=== PATIENT | male | born 1960 | race Caucasian/White ===

== ENCOUNTER 2016-09-17 20:11 | Inpatient (IN) | payer BC, OTHER ==
--- NOTE | 2016-09-17 20:23 | C.PDOC ---
History Of Present Illness Patient presents with complaints of worsening pain to right inguinal area for a couple of days. Patient reports he has had similar symptoms in the past but is worse now rating pain a 5/10. Patient denies testicular pain, fever, chills, n/v /d or any other complaints at this time. Time Seen by Provider: 09/17/16 20:23 Chief Complaint (Nursing): Abdominal Pain History Per: Patient History/Exam Limitations: no limitations Onset/Duration Of Symptoms: Days Current Symptoms Are (Timing): Still Present Severity: Mild Pain Scale Rating Of: 2 Location Of Pain/Discomfort: Suprapubic Radiation Of Pain To:: None Quality Of Discomfort: "Pain" Associated Symptoms: denies: Fever, Chills Past Medical History Reviewed: Historical Data, Nursing Documentation, Vital Signs Vital Signs: Last Vital Signs Temp 97.7 F 09/17/16 21:24 Pulse 69 09/17/16 21:24 Resp 20 09/17/16 21:24 BP 111/75 09/17/16 21:24 Pulse Ox 96 09/17/16 21:24 - Medical History PMH: Diabetes - [facility] CENTRAL VENOUS CATHETER PLACEMENT WITH GUIDANCE (09/02/12) Family History: States: No Known Family Hx - Social History Hx Tobacco Use: No Hx Alcohol Use: No Hx Substance Use: No - Immunization History Hx Tetanus Toxoid Vaccination: No Hx Influenza Vaccination: No Hx Pneumococcal Vaccination: No Review Of Systems Constitutional: Negative for: Fever, Chills Gastrointestinal: Negative for: Nausea, Vomiting, Diarrhea Genitourinary: Negative for: Scrotal Pain Skin: Negative for: Rash Physical Exam - Physical Exam Appears: Non-toxic, No Acute Distress Skin: Warm, Dry, No Rash Head: Normacephalic Eye(s): bilateral: Normal Inspection Oral Mucosa: Moist Neck: Supple Chest: Symmetrical Cardiovascular: Rhythm Regular Respiratory: No Rales, No Rhonchi, No Wheezing Gastrointestinal/Abdominal: Bowel Sounds (Active), Soft, No Tenderness, No Guarding, No Rebound Male Genital: No Testicular Tenderness, Inguinal Tenderness, No Scrotal Swelling , Other (Right sided inguinal hernia, somewhat reduceable) Extremity: No Tenderness Extremity: Bilateral: Atraumatic, Normal Color And Temperature Neurological/Psych: Oriented x3, Normal Speech, Normal Cognition, Other (No focal deficits) ED Course And Treatment - Laboratory Results Result Diagrams: 09/17/16 21:01 09/17/16 21:01 O2 Sat by Pulse Oximetry: 100 (RA) Pulse Ox Interpretation: Normal Disposition Discussed With Dr.: Neri De Leon Comment: accepted the pt on his service and took over the care at 9:30 PM Doctor Will See Patient In The: Hospital Counseled Patient/Family Regarding: Studies Performed, Diagnosis - Disposition Disposition: HOSPITALIZED Disposition Time: 20:23 Condition: FAIR Forms: [facility] (Vietnamese) - Clinical Impression Clinical Impression: Abdominal pain, Inguinal hernia of right side with obstruction - Scribe Statement The provider has reviewed the documentation as recorded by the Scribe Elizabeth Pike All medical record entries made by the Scribe were at my direction and personally dictated by me. I have reviewed the chart and agree that the record accurately reflects my personal performance of the history, physical exam, medical decision making, and the department course for this patient. I have also personally directed, reviewed, and agree with the discharge instructions and disposition. Decision To Admit - Pt Status Changed To: Hospital Disposition Of: Inpatient - Admit Certification Admit to Inpatient:: After my assessment, the patient will require hospitalization for at least two midnights. This is because of the severity of symptoms shown, intensity of services needed, and/or the medical risk in this patient being treated as an outpatient. - InPatient: Physician Admission Certification:: After my assessment, the patient will require hospitalization for at least two midnights. This is because of the severity of symptoms shown, intensity of services needed, and/or the medical risk in this patient being treated as an outpatient. - . Bed Request Type: Regular Admitting Physician: Neri De Leon Patient Diagnosis: Abdominal pain, Inguinal hernia of right side with obstruction
[2016-09-17 20:24] VITALS: BMI 35.9
[2016-09-17] MEDS ORDERED: Sodium Chloride 0.9% 1,000 ML IV ONE (20:24)
[2016-09-17 21:04] LABS: BASO % 0.4 % (0.0-2.0); EOS # 0.3 K/uL (0.0-0.7); EOS % 3.3 % (0.0-4.0); HEMATOCRIT 46.5 % (35.0-51.0); LYMPH # 2.7 K/uL (1.0-4.3); LYMPH % 33.3 % (20.0-40.0); MEAN CELL VOLUME 88.9 fL (80.0-94.0); MEAN CORPUSCULAR HEMOGLOBIN 31.5 pg (27.0-31.0); MEAN CORPUSCULAR HGB CONC 35.4 g/dL (33.0-37.0); MONO # 0.9 K/uL (0.0-0.8); RED CELL DISTRIBUTION WIDTH 13.1 % (11.5-14.5); WHITE BLOOD COUNT 8.2 K/uL (4.8-10.8)
[2016-09-17] MEDS ORDERED: Sodium Chloride 0.9% 1,000 ML ONE ×2 (21:08→23:11)
[2016-09-17 21:09] LABS: RBC URINE 3 /hpf (0-3); URINE BACTERIA RARE (<OCC); URINE BILIRUBIN NEGATIVE (NEGATIVE); URINE BLOOD NEGATIVE (NEGATIVE); URINE COLOR Yellow (YELLOW); URINE GLUCOSE (UA) 3+ mg/dL (Normal); URINE KETONE NEGATIVE (NEGATIVE); URINE LEUKOCYTE ESTERASE NEG Leu/uL (Negative); URINE PROTEIN NEGATIVE (NEGATIVE); URINE UROBILINOGEN NORMAL mg/dL (0.2-1.0); WBC URINE 3 /hpf (0-5)
[2016-09-17 21:16] LABS: ALB/GLOB RATIO 1.6 (1.0-2.1); ALKALINE PHOSPHATASE 41 U/L (38-126); ALT/SGPT 42 U/L (21-72); AST/SGOT 23 U/L (17-59); BILIRUBIN,TOTAL 0.6 mg/dL (0.2-1.3); BLOOD UREA NITROGEN 14 mg/dL (9-20); CARBON DIOXIDE 25 mmol/L (22-30); CHLORIDE 97 mmol/L (98-107); GFR AFRICAN-AMERICAN > 60; GLUCOSE,RANDOM 260 mg/dL (75-110); POTASSIUM 3.8 mmol/L (3.6-5.2); SODIUM 137 mmol/L (132-148); TOTAL PROTEIN 6.4 g/dL (6.3-8.3)
--- NOTE | 2016-09-17 21:16 | CP.PCM.HP ---
History of Present Illness - History of Present Illness History of Present Illness: 56 year old with hx of DM, hx of obstructive uropathy complicated with sepsis. recently with inguinal hernia lately on and off pain, now with constant pain with nausea, admitted with incarceration and possible subacute obstruction, no fever, cp or sob, no prior [place], CHF or CVA. prior echo with normal LV, no . to be seen by surgery, acceptable risk for cardiac complication from a possible surgery. Present on Admission - Present on Admission Any Indicators Present on Admission: No Review of Systems - Constitutional Constitutional: Anorexia, Weakness - EENT Eyes: absent: Discharge Ears: absent: Ear Discharge, Dizziness Nose/Mouth/Throat: absent: Epistaxis - Cardiovascular Cardiovascular: absent: Acrocyanosis, Chest Pain, Diaphoresis, Palpitations, Syncope - Respiratory Respiratory: absent: Cough, Dyspnea, Hemoptysis - Gastrointestinal Gastrointestinal: Abdominal Pain, Constipation, Nausea. absent: Diarrhea - Genitourinary Genitourinary: absent: Change in Urinary Stream Past Patient History - Past Social History Smoking Status: Never Smoked - CARDIAC Hx Cardiac Disorders: No - RENAL Hx Kidney Stones: Yes - ENDOCRINE/METABOLIC Hx Diabetes Mellitus Type 2: Yes - PSYCHIATRIC Hx Substance Use: No - SURGICAL HISTORY Hx Surgeries: Yes - ANESTHESIA Hx Anesthesia: Yes Hx Anesthesia Reactions: No Meds Allergies/Adverse Reactions: Allergies Allergy/AdvReac Type Severity Reaction Status Date / Time No Known Allergies Allergy Unverified 09/02/12 13:32 Physical Exam - Constitutional Appears: Non-toxic - Head Exam Head Exam: ATRAUMATIC - Eye Exam Eye Exam: EOMI - ENT Exam ENT Exam: Mucous Membranes Moist - Neck Exam Neck exam: Negative for: Lymphadenopathy, Thyromegaly - Respiratory Exam Respiratory Exam: Clear to Auscultation Bilateral. absent: Rales - Cardiovascular Exam Cardiovascular Exam: REGULAR RHYTHM. absent: Systolic Murmur - GI/Abdominal Exam GI & Abdominal Exam: Normal Bowel Sounds, Tenderness. absent: Organomegaly - Rectal Exam Rectal Exam: Deferred - Extremities Exam Extremities exam: Positive for: normal capillary refill. Negative for: calf tenderness - Neurological Exam Neurological exam: Alert, Oriented x3 - Psychiatric Exam Psychiatric exam: Anxious - Skin Skin Exam: Dry Results - Vital Signs Recent Vital Signs: Last Vital Signs Temp 97.8 F 09/17/16 20:23 Pulse 69 09/17/16 20:23 Resp 16 09/17/16 20:23 BP 115/82 09/17/16 20:23 Pulse Ox 100 09/17/16 20:42 - Labs Result Diagrams: 09/17/16 21:01 09/17/16 21:01 Labs: Laboratory Results - last 24 hr 09/17/16 09/17/16 21:01 21:01 WBC 8.2 RBC 5.23 Hgb 16.5 Hct 46.5 MCV 88.9 MCH 31.5 H MCHC 35.4 RDW 13.1 Plt Count 126 L D MPV 10.0 Neut % (Auto) 52.0 Lymph % (Auto) 33.3 [place] % (Auto) 11.0 H Eos % (Auto) 3.3 Baso % (Auto) 0.4 Neut # 4.3 Lymph # 2.7 [place] # 0.9 H Eos # 0.3 Baso # 0.0 Urine Color Yellow Urine Clarity Clear Urine pH 6.0 Ur Specific [place] 1.020 Urine Protein Negative Urine Glucose (UA) 3+ H Urine Ketones Negative Urine Blood Negative Urine Nitrate Negative Urine Bilirubin Negative Urine Urobilinogen Normal Ur Leukocyte Esterase Neg Urine WBC (Auto) 3 Urine RBC (Auto) 3 Ur Squamous Epith Cells < 1 Urine Bacteria Rare Assessment & Plan (1) Inguinal hernia of right side with obstruction Status: Acute Comment: symptomatic, f/u with surgery, acceptable risk for cardiac complication from possible surgery. (2) Diabetes 1.5, managed as type 2 Status: Chronic Comment: stable (3) Urolithiasis Status: Chronic Decision To Admit - Pt Status Changed To: Hospital Disposition Of: Inpatient - Admit Certification Admit to Inpatient:: After my assessment, the patient will require hospitalization for at least two midnights. This is because of the severity of symptoms shown, intensity of services needed, and/or the medical risk in this patient being treated as an outpatient. - InPatient: Physician Admission Certification:: yes - . Bed Request Type: Regular
[2016-09-17] MEDS ORDERED: Oxycodone/Acetaminophen 5/325 mg Tab PO PRN (21:30)
[2016-09-17] MEDS ORDERED: HYDROmorphone 1 mg/ml ISec IVP PRN (21:30)
[2016-09-17] MEDS: Sodium Chloride 0.9% 1,000 ML IV SCH (23:15)
[2016-09-17] MEDS: (Novolin R) Insulin Human Regular 100 units/ml vial SC SCH (23:23)
[2016-09-17] MEDS ORDERED: (Novolin R) Insulin Human Regular 100 units/ml vial ONE (23:23)
--- NOTE | 2016-09-18 00:59 | CP.PCM.CON ---
History of Present Illness - History of Present Illness History of Present Illness: [facility] Surgery Consult Re: R inguinal hernia HPI: 56M with recurrent R inguinal hernia having occasional pain for the last 1- 2 months. Now constant pain with nausea, no emesis, admitted with incarceration and possible subacute obstruction. No F/C, sob, chest pain, change in bowel or bladder habits. Prior echo with normal LV, no . Cleared for surgery per primary. PMH: DM, urolithiasis, PSH: R inguinal hernia, R knee surgeries SH: Denies tobacco, EtOH, and drug use. All: NKDA Meds: Metformin Review of Systems - Review of Systems All systems: reviewed and no additional remarkable complaints except (as per HPI ) Past Patient History - Past Social History Smoking Status: Never Smoked - CARDIAC Hx Cardiac Disorders: No - RENAL Hx Kidney Stones: Yes - ENDOCRINE/METABOLIC Hx Diabetes Mellitus Type 2: Yes - PSYCHIATRIC Hx Substance Use: No - SURGICAL HISTORY Hx Surgeries: Yes - ANESTHESIA Hx Anesthesia: Yes Hx Anesthesia Reactions: No Meds Allergies/Adverse Reactions: Allergies Allergy/AdvReac Type Severity Reaction Status Date / Time No Known Allergies Allergy Unverified 09/02/12 13:32 - Medications Medications: Current Medications Acetaminophen (Tylenol 325mg Tab) 650 mg PO Q6 PRN PRN Reason: Fever >100.4 F Docusate Sodium (Colace) 100 mg PO BID [facility] Hydromorphone HCl (Dilaudid) 1 mg IVP Q6H PRN PRN Reason: Pain, severe (8-10) Sodium Chloride (Sodium Chloride 0.9%) 1,000 mls @ 100 mls/hr IV .Q10H ONE Stop: 09/18/16 06:23 Last Admin: 09/17/16 21:04 Dose: 100 mls/hr Sodium Chloride (Sodium Chloride 0.9%) 1,000 mls @ 60 mls/hr IV .[id number] [facility] Last Admin: 09/17/16 23:15 Dose: 60 mls/hr Insulin Human Regular (Novolin R) 0 unit SC ACHS [facility] PRN Reason: Protocol Last Admin: 09/17/16 23:23 Dose: 2 unit Metformin HCl (Glucophage) 500 mg PO DAILY [facility] Ondansetron HCl (Zofran Inj) 4 mg IVP Q6 PRN PRN Reason: Nausea/Vomiting Oxycodone/Acetaminophen (Percocet 5/325 Mg Tab) 1 tab PO Q4 PRN PRN Reason: Pain, moderate (4-7) Stop: 09/20/16 21:31 Sucralfate (Carafate Tab) 1 gm PO BID [facility] Physical Exam - Constitutional Appears: Non-toxic, No Acute Distress - Head Exam Head Exam: ATRAUMATIC, NORMOCEPHALIC - Eye Exam Eye Exam: EOMI. absent: Scleral icterus - Respiratory Exam Respiratory Exam: NORMAL BREATHING PATTERN. absent: Respiratory Distress - Cardiovascular Exam Cardiovascular Exam: RRR, +S1, +S2 - GI/Abdominal Exam GI & Abdominal Exam: Soft. absent: Distended, Tenderness - Rectal Exam Rectal Exam: Deferred - Exam Additional comments: R inguinal hernia,TTP, reducible - Extremities Exam Extremities exam: Negative for: calf tenderness, pedal edema - Back Exam Back exam: absent: CVA tenderness (L), CVA tenderness (R) - Neurological Exam Neurological exam: Alert, Oriented x3 - Psychiatric Exam Psychiatric exam: Normal Affect, Normal Mood - Skin Skin Exam: Dry, Warm Results - Vital Signs Recent Vital Signs: Last Vital Signs Temp 98 F 09/18/16 00:55 Pulse 75 09/18/16 00:55 Resp 20 09/18/16 00:55 BP 119/77 09/18/16 00:55 Pulse Ox 96 09/18/16 00:55 - Labs Result Diagrams: 09/17/16 21:01 09/17/16 21:01 Labs: Laboratory Results - last 24 hr 09/17/16 23:14 POC Glucose (mg/dL) 197 H Assessment & Plan - Assessment and Plan (Free Text) Assessment: 56M with recurrent R inguinal hernia Plan: NPO p MN Possible OR tomorrow. IVF Pain control Cleared for surgery from a cardiac standpoint D/W Dr. Patsy Burns PGY4
[2016-09-18] MEDS: (Novolin R) Insulin Human Regular 100 units/ml vial SC SCH ×4 (08:03→21:33)
--- NOTE | 2016-09-18 08:10 | RAD ---
PROCEDURE: CHEST RADIOGRAPH, 1 VIEW HISTORY: Abdominal pain COMPARISON: 09/07/2012 FINDINGS: LUNGS: Diffuse increased interstitial lung markings suggestive for underlying edema and or infiltrate. Right hilar prominence. Patchy increased consolidative changes at the left lung base. PLEURA: As above. CARDIOVASCULAR: Normal. OSSEOUS STRUCTURES: No significant abnormalities. Productive change at the end of the 1st left rib. VISUALIZED UPPER ABDOMEN: Normal. OTHER FINDINGS: None. IMPRESSION: Diffuse increased interstitial lung markings suggestive for underlying edema and or infiltrate. Right hilar prominence. Patchy increased consolidative changes at the left lung base.
[2016-09-18 09:01] LABS: CHOLESTEROL 159 mg/dL (0-199)
--- NOTE | 2016-09-18 12:19 | CP.PCM.PN ---
Subjective - Date & Time of Evaluation Date of Evaluation: 09/18/16 Time of Evaluation: 12:00 - Subjective Subjective: With pain, plan for surgery. Stable hemodynamically, acceptable risk for cardiac complication from the proposed surgery. Objective - Vital Signs/Intake and Output Vital Signs (last 24 hours): Temp Pulse Resp BP Pulse Ox 97.7 F 66 20 111/75 98 09/18/16 07:05 09/18/16 07:05 09/18/16 07:05 09/18/16 07:05 09/18/16 07:05 Intake and Output: 09/18/16 09/18/16 06:59 18:59 Intake Total 360 Balance 360 - Medications Medications: Current Medications Acetaminophen (Tylenol 325mg Tab) 650 mg PO Q6 PRN PRN Reason: Fever >100.4 F Docusate Sodium (Colace) 100 mg PO BID [facility] Last Admin: 09/18/16 09:26 Dose: Not Given Hydromorphone HCl (Dilaudid) 1 mg IVP Q6H PRN PRN Reason: Pain, severe (8-10) Sodium Chloride (Sodium Chloride 0.9%) 1,000 mls @ 60 mls/hr IV .[id number] [facility] Last Admin: 09/17/16 23:15 Dose: 60 mls/hr Insulin Human Regular (Novolin R) 0 unit SC ACHS [facility] PRN Reason: Protocol Last Admin: 09/18/16 11:39 Dose: Not Given Metformin HCl (Glucophage) 500 mg PO DAILY [facility] Last Admin: 09/18/16 09:26 Dose: Not Given Ondansetron HCl (Zofran Inj) 4 mg IVP Q6 PRN PRN Reason: Nausea/Vomiting Oxycodone/Acetaminophen (Percocet 5/325 Mg Tab) 1 tab PO Q4 PRN PRN Reason: Pain, moderate (4-7) Stop: 09/20/16 21:31 Pneumococcal Polyvalent Vaccine (Pneumovax 23 Vaccine) 0.5 ml IM .ONCE ONE Stop: 09/20/16 10:01 Sucralfate (Carafate Tab) 1 gm PO BID [facility] Last Admin: 09/18/16 09:26 Dose: Not Given - Labs Labs: PT 11.7 SECONDS (9.7-12.2) 09/17/16 21:01 INR 1.0 09/17/16 21:01 APTT 31 SECONDS (21-34) 09/17/16 21:01 - Constitutional Appears: Non-toxic - Head Exam Head Exam: ATRAUMATIC - Eye Exam Eye Exam: EOMI - ENT Exam ENT Exam: Mucous Membranes Moist - Neck Exam Neck Exam: absent: Lymphadenopathy, Thyromegaly - Respiratory Exam Respiratory Exam: Clear to Ausculation Bilateral. absent: Rales - Cardiovascular Exam Cardiovascular Exam: REGULAR RHYTHM. absent: Murmur - GI/Abdominal Exam GI & Abdominal Exam: Normal Bowel Sounds. absent: Organomegaly - Rectal Exam Rectal Exam: Deferred - Extremities Exam Extremities Exam: Normal Capillary Refill. absent: Calf Tenderness - Neurological Exam Neurological Exam: Alert, Oriented x3 - Psychiatric Exam Psychiatric exam: Anxious - Skin Skin Exam: Dry Assessment and Plan (1) Inguinal hernia of right side with obstruction Status: Acute (2) Diabetes 1.5, managed as type 2 Status: Chronic (3) Urolithiasis Status: Chronic
[2016-09-18] MEDS ORDERED: Lactated Ringer's 1,000 ML IV ONE (16:30)
[2016-09-18] MEDS ORDERED: Midazolam 2 MG/2 ML VIAL ONE (16:31)
[2016-09-18] MEDS ORDERED: Propofol 10 mg/ml Inj (20 ML) ONE (16:31)
[2016-09-18] MEDS ORDERED: ceFAZolin IV 1 gm in Dextrose 0 GM/0 ML BAG IVPB ONE (16:36)
[2016-09-18] MEDS ORDERED: ceFAZolin IV 2 gm in Dextrose 1 GM/50 ML BAG IVPB ONE (16:45)
[2016-09-18] MEDS ORDERED: Bupivacaine HCl 0.25% PF (10 ml) Inj ONE (16:46)
[2016-09-18] MEDS ORDERED: Rocuronium 10 mg/ml (5 ml) ONE (16:47)
[2016-09-18] MEDS: HYDROmorphone 0.5 mg/0.5 ml ISec IVP PRN ×3 (18:04→18:46)
--- NOTE | 2016-09-18 18:04 | PCM.SURG1 ---
Surgeon's Initial Post Op Note - Surgeon's Notes Surgeon: Dr. Garner Chlorine Cell Tender: Dr. Swan PGY2, PGY1 Pre-Operative Diagnosis: Recurrent Inguinal Hernia Operative Findings: see op note Post-Operative Diagnosis: same Operation Performed: Open Right Inguinal Hernia repair w/ mesh placement Specimen/Specimens Removed: none Estimated Blood Loss: EBL {In ML}: 10 Post-Op Condition: Good Date of Surgery/Procedure: 09/18/16 Time of Surgery/Procedure: 16:50
[2016-09-18] MEDS: Sodium Chloride 0.9% 1,000 ML IV SCH (19:00)
--- NOTE | 2016-09-18 19:16 | CARD ---
APPROVED REPORT EKG Measurement Heart [id number] <Conclusion> Normal sinus rhythm Normal ECG
[2016-09-18 20:13] VITALS: RESP 20
[2016-09-18] MEDS: Oxycodone/Acetaminophen 5/325 mg Tab PO PRN (20:16)
[2016-09-19] MEDS: Oxycodone/Acetaminophen 5/325 mg Tab PO PRN ×2 (01:42→05:46)
--- NOTE | 2016-09-19 04:29 | CON ---
DATE: HISTORY OF PRESENT ILLNESS: The patient is a 56-year-old white male who I know before because of his renal stone, he has some pain and he has inguinal hernia, which is becoming symptomatic and the patient not having pain, came to the ER and admitted. The patient has also CT scan done before which revealed renal stone. PHYSICAL EXAMINATION: Revealed abdomen soft, inguinal hernia present, no suprapubic fullness, no flank tenderness. The KUB revealed 5 mm stone in the right kidney. IMPRESSION: Inguinal hernia. PLAN: Repair by Dr. Garner and renal stone needs followup for future fragmentation. Shady Lu MD
[2016-09-19] MEDS: Sodium Chloride 0.9% 1,000 ML IV SCH (05:51)
[2016-09-19] MEDS: (Novolin R) Insulin Human Regular 100 units/ml vial SC SCH ×2 (07:30→11:30)
--- NOTE | 2016-09-19 09:31 | OP ---
PROCEDURE DATE: 09/18/2016 PREOPERATIVE DIAGNOSIS: Incarcerated right inguinal hernia. POSTOPERATIVE DIAGNOSIS: Recurrent inguinal hernia. PROCEDURE: Repair of recurrent recently incarcerated right inguinal hernia. SURGEON: Dr. Patsy Germain. MILIEU COUNSELOR: Dr. Sanchez and Dr. Swan, residents. ANESTHESIA ADMINISTERED BY: Dr. Dong. INDICATIONS: A 56-year-old man with remote history of hernia repair in the past who presents with severe groin pain. Examination was benign. The hernia was reduced, but he had such severe pain that he was admitted to the hospital. OPERATIVE FINDINGS: There was a quarter sized defect at the internal ring. This was repaired with the use of a PHS Prolene hernia system during the dissection of the cord and its content. The part of the cord particularly the vas was adherent to the underlying fascia, so we did not sweep this up with rest of the cord and left it there. After completion of the dissection, we then placed a PHS Prolene hernia system into the preperitoneal space unrolled it appropriately and then sutured and stapled the mesh into position. The result was quite good. We then closed the external oblique, closed the skin. The skin was closed with subcuticular closure and injected Marcaine. Blood loss during the procedure was less than 20 mL. Operation carried out was repair of recurrent recently incarcerated right inguinal hernia. Samson Garner Jr., MD cc: Neri Cuenca.
--- NOTE | 2016-09-19 14:41 | CP.PCM.PN ---
Subjective - Date & Time of Evaluation Date of Evaluation: 09/19/16 Time of Evaluation: 10:30 - Subjective Subjective: Patient seen and examined this morning. No acute events over night. Patient is voiding. Reports pain along surgical incision. Denies n/v. Objective - Vital Signs/Intake and Output Vital Signs (last 24 hours): Temp Pulse Resp BP Pulse Ox 98.2 F 75 20 119/63 94 L 09/19/16 08:39 09/19/16 08:39 09/19/16 08:39 09/19/16 08:39 09/19/16 08:39 Intake and Output: 09/19/16 09/19/16 06:59 18:59 Intake Total 1680 Output Total 2250 Balance -570 - Medications Medications: Current Medications Acetaminophen (Tylenol 325mg Tab) 975 mg PO Q8 [facility] Last Admin: 09/19/16 06:00 Dose: Not Given Docusate Sodium (Colace) 100 mg PO BID [facility] Last Admin: 09/19/16 10:11 Dose: 100 mg Sodium Chloride (Sodium Chloride 0.9%) 1,000 mls @ 60 mls/hr IV .[id number] [facility] Last Admin: 09/19/16 05:51 Dose: 60 mls/hr Insulin Human Regular (Novolin R) 0 unit SC ACHS [facility] PRN Reason: Protocol Last Admin: 09/19/16 11:30 Dose: 4 unit Ketorolac Tromethamine (Toradol) 10 mg PO Q6 PRN PRN Reason: Pain, moderate (4-7) Metformin HCl (Glucophage) 500 mg PO DAILY [facility] Last Admin: 09/19/16 10:10 Dose: 500 mg Ondansetron HCl (Zofran Inj) 4 mg IVP Q6 PRN PRN Reason: Nausea/Vomiting Oxycodone/Acetaminophen (Percocet 5/325 Mg Tab) 2 tab PO Q4 PRN PRN Reason: Pain, severe (8-10) Stop: 09/20/16 21:31 Last Admin: 09/19/16 05:46 Dose: 2 tab Pneumococcal Polyvalent Vaccine (Pneumovax 23 Vaccine) 0.5 ml IM .ONCE ONE Stop: 09/20/16 10:01 Sucralfate (Carafate Tab) 1 gm PO BID [facility] Last Admin: 09/19/16 10:11 Dose: 1 gm - Labs Labs: PT 11.7 SECONDS (9.7-12.2) 09/17/16 21:01 INR 1.0 09/17/16 21:01 APTT 31 SECONDS (21-34) 09/17/16 21:01 - Constitutional Appears: No Acute Distress - Head Exam Head Exam: NORMOCEPHALIC - Eye Exam Eye Exam: Normal appearance - ENT Exam ENT Exam: Mucous Membranes Moist - Respiratory Exam Respiratory Exam: NORMAL BREATHING PATTERN - Cardiovascular Exam Cardiovascular Exam: +S1, +S2 - GI/Abdominal Exam GI & Abdominal Exam: Soft, Tenderness - Extremities Exam Extremities Exam: absent: Calf Tenderness - Neurological Exam Neurological Exam: Alert, Awake, Oriented x3 - Psychiatric Exam Psychiatric exam: Normal Mood - Skin Skin Exam: Dry, Intact, Warm Assessment and Plan - Assessment and Plan (Free Text) Assessment: 56M s/p right (recurrent) inguinal hernia repair w/ mesh placement POD1 -Regular diet -Clear for discharge from surgical standpoint -Follow w/ Dr. Garner in 7-10 days -Okay to remove band aids tomorrow -Steri strips will fall off on their own -Further recs per Dr. Patsy Swan PGY-2
--- NOTE | 2016-09-19 15:11 | CP.PCM.PN ---
Subjective - Date & Time of Evaluation Date of Evaluation: 09/19/16 Time of Evaluation: 15:10 - Subjective Subjective: PT SEEN AND EXAMINED, DENIES ANY PAIN, RESP EASY AND UNLABORED. NAD Objective - Vital Signs/Intake and Output Vital Signs (last 24 hours): Temp Pulse Resp BP Pulse Ox 98.2 F 75 20 119/63 94 L 09/19/16 08:39 09/19/16 08:39 09/19/16 08:39 09/19/16 08:39 09/19/16 08:39 Intake and Output: 09/19/16 09/19/16 06:59 18:59 Intake Total 1680 Output Total 2250 Balance -570 - Medications Medications: Current Medications Acetaminophen (Tylenol 325mg Tab) 975 mg PO Q8 [facility] Last Admin: 09/19/16 06:00 Dose: Not Given Docusate Sodium (Colace) 100 mg PO BID [facility] Last Admin: 09/19/16 10:11 Dose: 100 mg Sodium Chloride (Sodium Chloride 0.9%) 1,000 mls @ 60 mls/hr IV .[id number] [facility] Last Admin: 09/19/16 05:51 Dose: 60 mls/hr Insulin Human Regular (Novolin R) 0 unit SC ACHS [facility] PRN Reason: Protocol Last Admin: 09/19/16 11:30 Dose: 4 unit Ketorolac Tromethamine (Toradol) 10 mg PO Q6 PRN PRN Reason: Pain, moderate (4-7) Metformin HCl (Glucophage) 500 mg PO DAILY [facility] Last Admin: 09/19/16 10:10 Dose: 500 mg Ondansetron HCl (Zofran Inj) 4 mg IVP Q6 PRN PRN Reason: Nausea/Vomiting Oxycodone/Acetaminophen (Percocet 5/325 Mg Tab) 2 tab PO Q4 PRN PRN Reason: Pain, severe (8-10) Stop: 09/20/16 21:31 Last Admin: 09/19/16 05:46 Dose: 2 tab Pneumococcal Polyvalent Vaccine (Pneumovax 23 Vaccine) 0.5 ml IM .ONCE ONE Stop: 09/20/16 10:01 Sucralfate (Carafate Tab) 1 gm PO BID [facility] Last Admin: 09/19/16 10:11 Dose: 1 gm - Labs Labs: PT 11.7 SECONDS (9.7-12.2) 09/17/16 21:01 INR 1.0 09/17/16 21:01 APTT 31 SECONDS (21-34) 09/17/16 21:01 Assessment and Plan - Assessment and Plan (Free Text) Plan: 56M s/p right (recurrent) inguinal hernia repair w/ mesh placement POD1 -Regular diet -Clear for discharge from surgical standpoint and Dr. De Leon -Follow w/ Dr. Garner in 7-10 days -Okay to remove band aids tomorrow -Steri strips will fall off on their own - Rx for percocet as per Dr. De Leon #15 pills Pt and family agree w/poc and verbalize understanding.
[2016-09-19 16:04] VITALS: BP 123/73; PULSE 88; TEMP 98.4; O2SAT 95
--- NOTE | 2016-09-19 16:35 | CP.PCM.DIS ---
Provider - Provider Date of Admission: 09/17/16 21:30 Attending physician: Neri Johnston MD Time Spent in preparation of Discharge (in minutes): 20 Diagnosis - Discharge Diagnosis (1) Inguinal hernia of right side with obstruction Status: Acute (2) Diabetes 1.5, managed as type 2 Status: Chronic (3) Urolithiasis Status: Chronic Hospital Course - Lab Results Lab Results: Most Recent Lab Values WBC 8.2 K/uL (4.8-10.8) 09/17/16 21:01 RBC 5.23 Mil/uL (4.40-5.90) 09/17/16 21:01 Hgb 16.5 g/dL (12.0-18.0) 09/17/16 21:01 Hct 46.5 % (35.0-51.0) 09/17/16 21:01 MCV 88.9 fL (80.0-94.0) 09/17/16 21:01 MCH 31.5 pg (27.0-31.0) H 09/17/16 21:01 MCHC 35.4 g/dL (33.0-37.0) 09/17/16 21:01 RDW 13.1 % (11.5-14.5) 09/17/16 21:01 Plt Count 126 K/uL (130-400) L D 09/17/16 21:01 MPV 10.0 fL (7.2-11.7) 09/17/16 21:01 Neut % (Auto) 52.0 % (50.0-75.0) 09/17/16 21:01 Lymph % (Auto) 33.3 % (20.0-40.0) 09/17/16 21:01 [place] % (Auto) 11.0 % (0.0-10.0) H 09/17/16 21:01 Eos % (Auto) 3.3 % (0.0-4.0) 09/17/16 21:01 Baso % (Auto) 0.4 % (0.0-2.0) 09/17/16 21:01 Neut # 4.3 K/uL (1.8-7.0) 09/17/16 21:01 Lymph # 2.7 K/uL (1.0-4.3) 09/17/16 21:01 [place] # 0.9 K/uL (0.0-0.8) H 09/17/16 21:01 Eos # 0.3 K/uL (0.0-0.7) 09/17/16 21:01 Baso # 0.0 K/uL (0.0-0.2) 09/17/16 21:01 Differential Comment 09/17/16 21:01 PT 11.7 SECONDS (9.7-12.2) 09/17/16 21:01 INR 1.0 09/17/16 21:01 APTT 31 SECONDS (21-34) 09/17/16 21:01 Sodium 137 mmol/L (132-148) 09/17/16 21:01 Potassium 3.8 mmol/L (3.6-5.2) 09/17/16 21:01 Chloride 97 mmol/L (98-107) L 09/17/16 21:01 Carbon Dioxide 25 mmol/L (22-30) 09/17/16 21:01 Anion Gap 19 (10-20) 09/17/16 21:01 BUN 14 mg/dL (9-20) 09/17/16 21:01 Creatinine 0.6 MG/DL (0.8-1.5) L 09/17/16 21:01 Est GFR ( Amer) > 60 09/17/16 21:01 Est GFR (Non-Af Amer) > 60 09/17/16 21:01 POC Glucose (mg/dL) 267 mg/dL (65-110) H 09/19/16 11:44 Random Glucose 260 mg/dL (75-110) H 09/17/16 21:01 Hemoglobin A1c 8.2 % (4.2-6.5) H D 09/18/16 08:29 Calcium 9.0 mg/dl (8.6-10.4) 09/17/16 21:01 Total Bilirubin 0.6 mg/dL (0.2-1.3) 09/17/16 21:01 AST 23 U/L (17-59) 09/17/16 21:01 ALT 42 U/L (21-72) 09/17/16 21:01 Alkaline Phosphatase 41 U/L (38-126) 09/17/16 21:01 Total Protein 6.4 g/dL (6.3-8.3) 09/17/16 21:01 Albumin 4.0 g/dL (3.5-5.0) 09/17/16 21:01 Globulin 2.5 gm/dL (2.2-3.9) 09/17/16 21:01 Albumin/Globulin Ratio 1.6 (1.0-2.1) 09/17/16 21:01 Triglycerides 154 mg/dL (0-149) H D 09/18/16 08:29 Cholesterol 159 mg/dL (0-199) 09/18/16 08:29 LDL Cholesterol Direct 100 mg/dL (0-129) 09/18/16 08:29 HDL Cholesterol 29 mg/dL (30-70) L 09/18/16 08: Lipase 93 U/L (23-300) 09/17/16 21:01 Urine Color Yellow (YELLOW) 09/17/16 21:01 Urine Clarity Clear (Clear) 09/17/16 21:01 Urine pH 6.0 (5.0-8.0) 09/17/16 21:01 Ur Specific [place] 1.020 (1.003-1.030) 09/17/16 21:01 Urine Protein Negative mg/dL (NEGATIVE) 09/17/16 21:01 Urine Glucose (UA) 3+ mg/dL (Normal) H 09/17/16 21:01 Urine Ketones Negative mg/dL (NEGATIVE) 09/17/16 21:01 Urine Blood Negative (NEGATIVE) 09/17/16 21:01 Urine Nitrate Negative (NEGATIVE) 09/17/16 21:01 Urine Bilirubin Negative (NEGATIVE) 09/17/16 21:01 Urine Urobilinogen Normal mg/dL (0.2-1.0) 09/17/16 21:01 Ur Leukocyte Esterase Neg Sarai/uL (Negative) 09/17/16 21:01 Urine WBC (Auto) 3 /hpf (0-5) 09/17/16 21:01 Urine RBC (Auto) 3 /hpf (0-3) 09/17/16 21:01 Ur Squamous Epith Cells < 1 /hpf (0-5) 09/17/16 21:01 Urine Bacteria Rare (<OCC) 09/17/16 21:01 - Hospital Course Hospital Course: 56 year old admitted with pain, incarcerated R inguinal hernia, had uneventful surgery, able to eat, ambulate. a1c 8 for further management as out pt, lipids ok Discharge Exam - Head Exam Head Exam: NORMOCEPHALIC - Eye Exam Eye Exam: EOMI - ENT Exam ENT Exam: Mucous Membranes Moist - Neck Exam Neck exam: Full Rom - Respiratory Exam Respiratory Exam: Clear to PA & Lateral. absent: Rales - Cardiovascular Exam Cardiovascular Exam: REGULAR RHYTHM, Systolic Murmur - GI/Abdominal Exam GI & Abdominal Exam: Normal Bowel Sounds. absent: Organomegaly - Rectal Exam Rectal Exam: Deferred - Extremities Exam Extremities exam: normal capillary refill - Neurological Exam Neurological exam: Alert, Oriented x3 - Psychiatric Exam Psychiatric exam: Normal Mood - Skin Skin Exam: Dry Discharge Plan - Discharge Medications Prescriptions: Docusate [Colace] 100 mg PO BID #30 cap oxyCODONE/Acetaminophen [Percocet 5/325 mg Tab] 2 tab PO Q4 PRN #15 tab PRN Reason: Pain, Severe (8-10) - Follow Up Plan Condition: FAIR Disposition: HOME/ ROUTINE Instructions: Oxycodone/Acetaminophen (By mouth), Laxative, Stool Softeners ( By mouth), Inguinal Hernia (DC) Additional Instructions: FOLLOW UP WITH DR JOHNSTON IN THE OFFICE IN 1-2 DAYS FOLLOW UP WITH DR MONTES IN THE OFFICE IN 7-10 DAYS CONTINUE HOME MEDS OKAY TO REMOVE BAND AIDS TOMORROW [facility] WILL FALL OFF ITSELF CALL DR JOHNSTON'S OFFICE IF ANY FURTHER QUESTIONS RETURN TO ED IF ANY WORSENING SYMPTOMS Referrals: Samson Montes Jr., MD [Staff Provider] - Neri Johnston MD [Staff Provider] -
[2016-09-20] MEDS ORDERED: Pneumococcal 23-Valent Vaccine IM ONE (10:00)
== END 2016-09-19 16:30 | disposition home or self-care (01) | DRG 352 ==
LOC: C.ER 20:11 → C.9E 21:30 → C.3T 09-18 00:47
PROVIDERS: ADMIT Internal Medicine Cardiovascular Disease; ATTEND Internal Medicine Cardiovascular Disease
PROC: 0YU50JZ Supplement Right Inguinal Region with Synthetic Substitute, Open Approach (ICD-10-PCS; principal; 2016-09-18 15:15)
DX: K40.31 Unilateral inguinal hernia, with obstruction, without gangrene, recurrent (principal); N20.0 Calculus of kidney; E11.9 Type 2 diabetes mellitus without complications